=== PATIENT | male | born 2000 | race Caucasian/White ===

== ENCOUNTER 2021-03-27 15:10 | Emergency (ER) | payer OTHER, BC, SELFPAY ==
[2021-03-27 15:11] VITALS: BP 160/95; PULSE 74; RESP 18; TEMP 36.1; O2SAT 98; BMI 37.3
--- NOTE | 2021-03-27 15:21 | EX.ED.UPPERE ---
HPI History of Present Illness Chief Complaint: Laceration Narrative Narrative: 20-year-old male presenting with a laceration to the right index finger at the proximal aspect of the nail extending laterally about a quarter of a centimeter. 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 He does not know how he injured himself. He states he looked down and saw blood. He was able to get the bleeding under control with a dressing. He states he has no medical problems. He believes his immunizations are up-to-date. He is right-hand dominant. PFSH PFSH Allergy/AdvReac Type Severity Reaction Status Date / Time cefuroxime [From Ceftin] Allergy PT UNSURE Verified 03/27/21 15:11 OF REACTION Social History Smoking Status: Never smoker ROS ROS ED Constitutional Constitutional ED: Denies chills, fever(s) or sweats Eyes Eyes: Denies blurry vision or change in vision ENT ENT ED: Denies ear pain or sore throat Cardiovascular Cardiovascular: Denies chest pain, palpitations or racing heartbeat Respiratory/Chest Respiratory/Chest: Denies cough, dyspnea or sputum Gastrointestinal Gastrointestinal: Denies abdominal pain, constipation, diarrhea, nausea or vomiting Genitourinary Genitourinary ED: Denies dysuria, hematuria or urinary frequency Musculoskeletal Musculoskeletal: Denies arthralgias, myalgias or neck pain Integumentary Reports other Details: Laceration to right index fingernail ; Denies abscess or rash Neurologic Neurologic: Denies headache(s), paresthesias or weakness Psychiatric Psychiatric: Denies anxiety, depression, suicidal ideation or suicidal thoughts Endocrine Endocrinology: Denies polydipsia or polyuria EXAM Physical Exam Const Vital Signs: 03/27/21 15:11 Temperature 97 F L Temperature Source Temporal Pulse Rate 74 Respiratory Rate 18 Blood Pressure 160/95 H Blood Pressure Mean 116 Pulse Ox 98 Oxygen Delivery Method Room Air Positive well nourished General Appearance ED: NAD; Negative for pallor HEENT Reports normocephalic, head/scalp atraumatic and moist mucous membranes Eyes PERRL and EOMs intact bilaterally Neck no lymphadenopathy Resp normal respiratory effort Effort and Inspection: able to speak in complete sentences Cardio regular rate and regular rhythm GI normal to inspection, nondistended, normoactive bowel sounds Narrative: Deferred Back/Spine no CVA tenderness General Back: Negative for CVA tenderness Cervical Spine: Negative for cervical spine tenderness Extremity General Extremety ED: Yes tenderness Neuro oriented x3 and CN's II-XII intact bilaterally Sensorium / Orientation: alert Psych mental status grossly normal Skin no rashes or lesions noted and no wounds Skin Narrative: Superficial laceration to the right index finger proximal nail bed over the proximal one third of the nail and extending laterally about a quarter of a centimeter. There is no active bleeding. There is no subungual hematoma. Patient has no significant pain. Sensation is intact. Patient has full range of motion of the right index finger. General Skin Exam: Negative for jaundice or pallor MDM MDM MDM Narrative Medical decision making narrative: Patient's laceration is superficial and does cut through the nail and a proximal a very small superficial skin laceration laterally adjacent with this. The wound margins are well approximated. There is no active bleeding. Patient's hand is neurovascularly intact. I do not believe he has a nailbed injury. I will clean the patient's wound and apply glue over the superficial laceration. Patient does not require tetanus immunization currently. He will use Tylenol and ibuprofen in alternating doses for pain. Impression: 1. Superficial right index finger laceration 1 cm Procedures Lacerations Right Index Finger Laceration: Length: 0.39 in Depth: Skin Shape: Linear Laceration repair: Dermabond Irrigated (ml): 250 Discharge Plan Triage Chief Complaint: Laceration ED Provider: Arian Morales Dx/Rx/DC Orders Instructions: ED Laceration, Extremity: Skin Glue Primary Care Provider: Darshan Oviedo Referrals: Darshan Oviedo DO [Primary Care Provider] - Clinic,NOW [NON-STAFF] - 3-5 Days Disposition Disposition: Home, Self Care
--- NOTE | 2021-03-27 15:43 | ED.RN ---
[place] TRIAGE NURSE, ELAINE CALLED IN FOR DRUG SCREEN
== END 2021-03-27 17:18 | disposition home or self-care (01) ==
PROVIDERS: Emergency Provider Student in an Organized Health Care Education/Training Program; PCP Pediatrics
DX: S61.210A Laceration without foreign body of right index finger without damage to nail, initial encounter (principal); X58.XXXA Exposure to other specified factors, initial encounter; Y93.89 Activity, other specified; Y92.89 Other specified places as the place of occurrence of the external cause; Y99.0 Civilian activity done for income or pay
CPT/HCPCS: 12001; 99282

== ENCOUNTER → 2022-02-25 | Outpatient (CLI) | payer BC, SELFPAY ==
[2022-02-25 12:11] LABS: Absolute Lymphocyte Count 1.71 X10^3/uL (0.83-4.51); Absolute Neutrophil Count 2.6 X10^3/uL (2.0-7.7); Basophil# 0.02 X10^3/uL; Basophil% 0.4 % (0-1); Eosinophil# 0.16 X10^3/uL; Eosinophils% 3.3 % (0-5); Hematocrit 46.5 % (40-54); Hemoglobin 16.1 g/dL (13.0-16.5); Lymphocyte # 1.71 X10^3/ul (0.83-4.51); Lymphocyte % 34.8 % (19-41); Mean Corp Hgb Conc 34.6 g/dL (32-36); Mean Corpuscular Hgb 30.8 pg (27.0-32.0); Mean Corpuscular Volume 88.9 fL (80-94); Mean Platelet Vol. 9.9 fl (6.2-12.0); Monocyte# 0.44 X10^3/uL; Monocyte% 8.9 % (0-10); NRBC Flagged by Analyzer 0 % (0-5); Neutrophil # 2.58 X10^3/uL (2.7-7.7); Neutrophil % 52.4 % (47-70); Platelet Count 338 K/mm3 (150-450); RBC Distribution Width SD 38.7 fl (35.1-43.9); Red Blood Count 5.23 M/mm3 (4.6-6.2); White Blood Count 4.9 K/mm3 (4.4-11.0)
[2022-02-25 12:38] LABS: ALB/GLOB Ratio 1.3 RATIO (0.9-2.4); AST(SGOT) 25 U/L (15-37); Alanine Aminotransfer ALT/SGPT 75 U/L (16-61); Albumin, Serum 4.3 g/dL (3.2-5.0); Alkaline Phosphatase 85 U/L (45-117); Anion Gap 6 (5-15); BUN 9 mg/dL (7-18); BUN/Creat Ratio 9.5 RATIO (10-20); Calcium,Total 9.6 mg/dL (8.5-10.1); Chloride 103 mmol/L (98-107); Cholesterol 150 mg/dL (200); Creatinine, Serum 0.95 mg/dL (0.70-1.30); EST Glomerular Filtration Rate 107 mL/min (>60); Est Glom Filt Rate - Afr Amer 130 mL/min (>60); Globulin 3.3 g/dL (2.2-4.2); Glucose 89 mg/dL (74-106); High Density Lipoprotein 35 mg/dL; Potassium 4.2 mmol/L (3.5-5.1); Protein, Total 7.6 g/dL (6.4-8.2); Sodium Level 140 mmol/L (136-145); Thyroid Stim Hormone (TSH) 3.17 uIU/mL (0.358-3.74); Triglycerides 131 mg/dL; Very Low Density Lipoprotein 26 mg/dL (5-40)
== END | disposition home or self-care (01) ==
LOC: BIMLAB 08:39
PROVIDERS: PCP Nurse Practitioner Family; Referring Provider Nurse Practitioner Family; Visit Provider Nurse Practitioner Family
DX: Z00.00 Encounter for general adult medical examination without abnormal findings (principal)
CPT/HCPCS: 36415; 80053; 80061; 84443; 85025

== ENCOUNTER → 2022-05-20 | Outpatient (CLI) | payer BC, SELFPAY ==
[2022-05-20 12:57] LABS: ALB/GLOB Ratio 1.4 RATIO (0.9-2.4); AST(SGOT) 19 U/L (15-37); Alanine Aminotransfer ALT/SGPT 48 U/L (16-61); Albumin, Serum 4.1 g/dL (3.2-5.0); Alkaline Phosphatase 92 U/L (45-117); Anion Gap 6 (5-15); BUN 10 mg/dL (7-18); BUN/Creat Ratio 10.5 RATIO (10-20); Calcium,Total 9.6 mg/dL (8.5-10.1); Chloride 104 mmol/L (98-107); Creatinine, Serum 0.95 mg/dL (0.70-1.30); EST Glomerular Filtration Rate 107 mL/min (>60); Est Glom Filt Rate - Afr Amer 129 mL/min (>60); Glucose 111 mg/dL (74-106); Potassium 4.1 mmol/L (3.5-5.1); Protein, Total 7.1 g/dL (6.4-8.2); Sodium Level 141 mmol/L (136-145)
== END | disposition home or self-care (01) ==
LOC: BIMLAB 11:42
PROVIDERS: PCP Nurse Practitioner Family; Referring Provider Nurse Practitioner Family; Visit Provider Nurse Practitioner Family
DX: R79.89 Other specified abnormal findings of blood chemistry (principal)
CPT/HCPCS: 36415; 80053

== ENCOUNTER 2022-05-26 18:05 | Emergency (ER) | payer BC, SELFPAY ==
[2022-05-26 18:05] VITALS: BP 131/72; PULSE 62; RESP 14; O2SAT 98
[2022-05-26 18:06] VITALS: BP 136/80; PULSE 90; RESP 14; TEMP 36.8; O2SAT 98; BMI 32.6
[2022-05-26 19:24] VITALS: O2SAT 99
--- NOTE | 2022-05-26 19:43 | EDS_ITS ---
HPI History of Present Illness Chief Complaint: Shortness of Breath Narrative Narrative: 21-year-old male presenting with dizziness. He describes it as vertiginous. 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 He states he has not been nauseous or vomiting. He states that he does feel confused at times. He states he was seen by the urgent care with similar complaints and was treated as otitis media. He states he had to go on 2 rounds of antibiotics. He states there was still yellow drainage coming from his bilateral ears. He denies fever, chills. He denies cough or shortness of breath. He denies headache. [facility] Medical History Contusion of left index finger with damage to nail Encounter for preventative adult health care examination Laceration of left index finger Mallet deformity of left index finger Home Medications ondansetron HCl 8 mg tablet 8 mg PO Q12H PRN nausea and vomiting #14 tabs 05/07/22 [Rx Last Taken Unknown] meclizine 25 mg chewable tablet 25 mg PO DAILY PRN dizziness #30 tabs 05/26/22 [Rx Last Taken Unknown] promethazine 25 mg tablet 25 mg PO TID PRN nausea and vomiting #20 tabs 05/26/22 [Rx Last Taken Unknown] Allergy/AdvReac Type Severity Reaction Status Date / Time cefuroxime [From Ceftin] Allergy PT UNSURE Verified 05/26/22 18:05 OF REACTION Family History Father Alcoholism Grandfather Alcoholism Parkinsons Grandfather No problems noted. Grandmother Anxiety Breast cancer Melanoma Other Myocardial infarction Surgical History History of placement of ear tubes Social History Smoking Status: Never smoker Electronic Cigarette Use: with nicotine alcohol intake: never substance use type: does not use what type of physical activity do you participate in: weight training frequency: daily EXAM Physical Exam Const Vital Signs: 05/26/22 18:06 05/26/22 19:24 Temperature 98.2 F Temperature Source Temporal Pulse Rate 90 Respiratory Rate 14 Respiratory Effort Normal Non-Labored Respiratory Pattern Normal Blood Pressure 136/8 H Blood Pressure Mean 50 Pulse Ox 98 Oxygen Delivery Method Room Air Room Air Positive well nourished General Appearance ED: NAD; Negative for pallor HEENT Reports moist mucous membranes HEENT Narrative: Positive Nathalie-Hallpike Negative for trauma Eyes PERRL and EOMs intact bilaterally Chest Wall inspection of chest normal Resp normal respiratory effort Auscultation: Negative for rales, rhonchi or wheezes Cardio regular rate and regular rhythm GI normal to inspection, nondistended, normoactive bowel sounds Extremity normal to inspection Neuro oriented x3 and CN's II-XII intact bilaterally Sensorium / Orientation: alert Psych mental status grossly normal Skin no rashes or lesions noted and no wounds General Skin Exam: Negative for jaundice or pallor MDM MDM MDM Narrative Medical decision making narrative: Patient presenting with dizziness. He is concerned he has otitis media again. He has been on 2 rounds of antibiotics. His HEENT exam is normal with exception of a positive Nathalie-Hallpike. Patient medicated with meclizine. Triage note states that he has been short of breath but he denies this. He does not have a cough or fever or chills. Last had influenza a few weeks ago. I did observe the patient walking in the hallways with a stable gait. He was not falling or holding onto the wall. He reports that he does not feel improved at all however he is moving around and not having any difficulty objectively. Given this I will discharge him home on meclizine. He was given Phenergan as needed for na usea as well. States his. He was given follow-up with ENT. Impression: 1. Vertigo Discharge Plan Triage Chief Complaint: Shortness of Breath ED Provider: Arian Morales Dx/Rx/DC Orders Instructions: ED BPV Vertigo Prescriptions: New meclizine 25 mg tablet,chewable 25 mg PO DAILY PRN (Reason: dizziness) Qty: 30 0RF promethazine 25 mg tablet 25 mg PO TID PRN (Reason: nausea and vomiting) Qty: 20 0RF No Action ondansetron HCl 8 mg tablet 8 mg PO Q12H PRN (Reason: nausea and vomiting) Qty: 14 0RF Primary Care Provider: Getachew Cabrera NP Referrals: Mars Bowen MD [Med Staff - Courtesy Staff] - 3-5 Days Getachew Cabrera WEBSPHERE PORTAL ARCHITECT, WEBSPHERE PORTAL ARCHITECT-C [Primary Care Provider] - Disposition Disposition: Home, Self Care
[2022-05-26] MEDS: Meclizine HCl 25 MG Tablet PO (20:07)
== END 2022-05-26 21:53 | disposition home or self-care (01) ==
PROVIDERS: Emergency Provider Student in an Organized Health Care Education/Training Program; PCP Nurse Practitioner Family; Visit Provider Student in an Organized Health Care Education/Training Program
DX: R42 Dizziness and giddiness (principal); F17.210 Nicotine dependence, cigarettes, uncomplicated
CPT/HCPCS: 99283

== ENCOUNTER 2022-06-02 09:16 | Emergency (ER) | payer BC, SELFPAY ==
[2022-06-02 09:17] VITALS: BP 105/78; PULSE 97; RESP 18; TEMP 36.1; O2SAT 99; BMI 34.0
--- NOTE | 2022-06-02 09:40 | EDS_ITS ---
HPI History of Present Illness Chief Complaint: Nausea/Vomiting Narrative Narrative: 21-year-old male presenting with nausea/vomiting. He states it started when he woke up today. He woke up and started vomiting. Patient does also state he has been able to hold down water without vomiting this. He just cannot keep food down. He states he ate pork and sauerkraut last night. This is not out of the ordinary for him. He eats this twice a month. Nobody else that ate this became ill. He states he was unable to go to work. He states he does not have any fever, chills, body aches. He has never cough or shortness of breath. No rhinorrhea or congestion. Patient does not have abdominal pain, diarrhea, constipation. He states he is otherwise healthy. Patient does have a prescription for Phenergan and meclizine at home. This is due to a history of vertigo. He states that Zofran in the past has given him a headache. Patient denies a simona allergy to this. [facility] Medical History Contusion of left index finger with damage to nail Encounter for preventative adult health care examination Laceration of left index finger Mallet deformity of left index finger Home Medications ondansetron HCl 8 mg tablet 8 mg PO Q12H PRN nausea and vomiting #14 tabs 05/07/22 [Rx Last Taken Unknown] meclizine 25 mg chewable tablet 25 mg PO DAILY PRN dizziness #30 tabs 05/26/22 [Rx Last Taken Unknown] promethazine 25 mg tablet 25 mg PO TID PRN nausea and vomiting #20 tabs 05/26/22 [Rx Last Taken Unknown] promethazine 25 mg tablet 25 mg PO TID PRN nausea and vomiting #20 tabs 06/02/22 [Rx Last Taken Unknown] Allergy/AdvReac Type Severity Reaction Status Date / Time cefuroxime [From Ceftin] Allergy PT UNSURE Verified 06/02/22 09:19 OF REACTION Family History Father Alcoholism Grandfather Alcoholism Parkinsons Grandfather No problems noted. Grandmother Anxiety Breast cancer Melanoma Other Myocardial infarction Surgical History History of placement of ear tubes Social History Smoking Status: Never smoker Electronic Cigarette Use: with nicotine alcohol intake: never substance use type: does not use what type of physical activity do you participate in: weight training frequency: daily ROS ROS ED Constitutional Constitutional ED: Denies chills, fever(s) or sweats Eyes Eyes: Denies blurry vision or change in vision ENT ENT ED: Denies ear pain or sore throat Cardiovascular Cardiovascular: Denies chest pain, palpitations or racing heartbeat Respiratory/Chest Respiratory/Chest: Denies cough, dyspnea or sputum Gastrointestinal Gastrointestinal: Reports nausea and vomiting; Denies abdominal pain, constipation or diarrhea Genitourinary Genitourinary ED: Denies dysuria, hematuria or urinary frequency Musculoskeletal Musculoskeletal: Denies arthralgias, myalgias or neck pain Integumentary Denies abscess, Abrasions or rash Neurologic Neurologic: Denies headache(s), paresthesias or weakness Psychiatric Psychiatric: Denies anxiety, depression, suicidal ideation or suicidal thoughts Endocrine Endocrinology: Denies polydipsia or polyuria EXAM Physical Exam Const Vital Signs: 06/02/22 09:17 Temperature 96.9 F L Temperature Source Temporal Pulse Rate 97 Respiratory Rate 18 Blood Pressure 105/78 Blood Pressure Mean 87 Pulse Ox 99 Oxygen Delivery Method Room Air Positive well nourished General Appearance ED: NAD; Negative for pallor HEENT Reports moist mucous membranes Eyes PERRL and EOMs intact bilaterally Neck no lymphadenopathy Chest Wall inspection of chest normal and palpation of chest normal Resp normal respiratory effort and clear to auscultation bilaterally Cardio regular rate and regular rhythm GI normal to inspection, nondistended, normoactive bowel sounds Neuro oriented x3 and CN's II-XII intact bilaterally Sensorium / Orientation: alert Motor Exam: strength 5/5 throughout and general weakness Psych mental status grossly normal Skin no rashes or lesions noted General Skin Exam: Negative for jaundice or pallor MDM MDM MDM Narrative Medical decision making narrative: Patient does not want Zofran because gives him a headache. He was given 1 dose of Phenergan. He request a work note for work. Patient feeling improved after Phenergan. He was given another prescription for this which specifically states for nausea and vomiting. I do not believe he needs a blood work or imaging. Patient discharged home in stable condition. Impression: 1. Nausea 2. Vomiting Lab Data Attestation: I reviewed the patient's lab results. Discharge Plan Triage Chief Complaint: Nausea/Vomiting ED Provider: Arian Morales Dx/Rx/DC Orders Instructions: ED Vomiting (Adult) Prescriptions: New promethazine 25 mg tablet 25 mg PO TID PRN (Reason: nausea and vomiting) Qty: 20 0RF No Action ondansetron HCl 8 mg tablet 8 mg PO Q12H PRN (Reason: nausea and vomiting) Qty: 14 0RF meclizine 25 mg tablet,chewable 25 mg PO DAILY PRN (Reason: dizziness) Qty: 30 0RF promethazine 25 mg tablet 25 mg PO TID PRN (Reason: nausea and vomiting) Qty: 20 0RF Stand Alone Forms: ED Work / School Excuse Primary Care Provider: Getachew Cabrera NP Referrals: Getachew Cabrera NP, SMALL MACHINE BINDERY OPERATOR-C [Primary Care Provider] - Disposition Disposition: Home, Self Care Discharge Date/Time: 06/02/22 10:00
[2022-06-02] MEDS: proMETHazine 25 MG Tablet PO (09:43)
== END 2022-06-02 10:00 | disposition home or self-care (01) ==
PROVIDERS: Emergency Provider Student in an Organized Health Care Education/Training Program; PCP Nurse Practitioner Family; Visit Provider Student in an Organized Health Care Education/Training Program
DX: R11.2 Nausea with vomiting, unspecified (principal); F17.290 Nicotine dependence, other tobacco product, uncomplicated
CPT/HCPCS: 99283

== ENCOUNTER 2022-08-28 19:49 | Emergency (ER) | payer BC, SELFPAY ==
[2022-08-28 19:52] VITALS: BP 129/83; PULSE 71; RESP 18; TEMP 36.6; O2SAT 98; BMI 34.7
--- NOTE | 2022-08-28 19:54 | RAD_ITS ---
INDICATION: BILAT -- PAIN EXAMINATION/TECHNIQUE: X-RAY - LEFT XR Knee 3 Views COMPARISON: None. FINDINGS: SOFT TISSUES: No soft tissue swelling or gas. No radiopaque foreign body. BONES/JOINTS: No acute fracture or subluxation.. Normal alignment. Preservation of the joint space.. No sclerotic or destructive changes observed. RAD/Knee 3 Views IMPRESSION: Negative. Electronically Signed: Dioni Goldstein DO at 20:17 EDT ,
--- NOTE | 2022-08-28 20:00 | RAD_ITS ---
INDICATION: PAIN EXAMINATION/TECHNIQUE: X-RAY - RIGHT XR Knee 3 Views COMPARISON: None. FINDINGS: SOFT TISSUES: No soft tissue swelling or gas. No radiopaque foreign body. BONES/JOINTS: No acute fracture or subluxation.. Normal alignment. Preservation of the joint space.. No sclerotic or destructive changes observed. RAD/Knee 3 Views IMPRESSION: No acute bony injury. Electronically Signed: Dioni Goldstein DO at 20:17 EDT ,
--- NOTE | 2022-08-28 20:45 | EDS_ITS ---
HPI History of Present Illness Chief Complaint: Lower Extremity Injury Detail of Chief Complaint: Clicking sensation lateral aspect of the right and left knee for some time Informant: patient Onset/Context/Timing Onset: Month(s) Context: Sudden Onset Timing: Intermittent Quality of Pain: Aching Location: Lateral aspect of right and left knee Current Severity: Mild Maximum Severity: Moderate Worsened by: Certain movements Relieved by: Rest Associated Symptoms Associated Symptoms: Negative for Parasthesia, Weakness or Loss of Funtion Narrative Narrative: Patient is a 22-year-old who presents with bilateral knee pain with clicking sensation for some time. He denies history of gout or pseudogout. He denies history of trauma. He denies paresthesia, anesthesia or motor weakness. Tetanus Immunization: 5-10 years Prior similar symptoms: No Recent Illness/Hospitalization: No PFSH [facility] Medical History Contusion of left index finger with damage to nail Encounter for preventative adult health care examination Laceration of left index finger Mallet deformity of left index finger Home Medications NK 08/28/22 [History Last Taken Unknown] Allergy/AdvReac Type Severity Reaction Status Date / Time cefuroxime [From Ceftin] Allergy PT UNSURE Verified 08/28/22 19:53 OF REACTION Family History Father Alcoholism Grandfather Alcoholism Parkinsons Grandfather No problems noted. Grandmother Anxiety Breast cancer Melanoma Other Myocardial infarction Surgical History History of placement of ear tubes Social History Smoking Status: Never smoker Electronic Cigarette Use: with nicotine alcohol intake: never substance use type: does not use what type of physical activity do you participate in: weight training frequency: daily ROS ROS ED Constitutional Constitutional ED: Denies chills, fever(s), subjective, sweats or weight loss Musculoskeletal Musculoskeletal: Reports other Details: Per HPI narrative ; Denies arthralgias, back pain, myalgias or neck pain Hematologic/Lymphatic Hematologic/Lymphatic: Denies easy bleeding or easy bruising EXAM Physical Exam Const Vital Signs: 08/28/22 19:52 Temperature 97.8 F Temperature Source Temporal Pulse Rate 71 Respiratory Rate 18 Blood Pressure 129/83 H Blood Pressure Mean 98 Pulse Ox 98 Oxygen Delivery Method Room Air Positive well nourished and well developed General Appearance ED: well developed and NAD HEENT Reports moist mucous membranes normocephalic and atraumatic Eyes Eyes Narrative: Pupils equal round reactive. Extraocular muscles are intact. Neck full ROM Resp normal respiratory effort Cardio regular rate and regular rhythm Extremity normal to inspection and full ROM Extremity Narrative: There is a appreciable clicking sensation consistent with a iliotibial band on the right and left. The patella is not ballotable. There is no effusion. There is no laxity with varus valgus stress testing. Penny's test was negative. Modified Navi's test was negative. DP and PT pulse are palpable. These findings are for both the right and left lower extremity. General Extremety ED: Negative for weight-bearing difficulty General Extremity: Negative for weight-bearing difficulty Neuro oriented x3, CN's II-XII intact bilaterally and moves all extremities Psych mental status grossly normal Skin no wounds Lesions: no lesions Rashes: no rashes MDM MDM MDM Narrative Medical decision making narrative: X-ray of the right and left knee were entered per nurse protocol. These were independently reviewed interpreted by me negative. Total of 4 views were seen Radiography Chest X-Ray - ED: Read by ED Physician (Documented in the MDM portion of the chart) Diagnostic Testing: Clinical Impression(s) from Imaging Studies Knee X-Ray 08/28/22 19:54 IMPRESSION: Negative. Electronically Signed: Dioni Goldstein DO at 20:17 EDT , Knee X-Ray 08/28/22 20:00 IMPRESSION: No acute bony injury. Electronically Signed: Dioni Goldstein DO at 20:17 EDT , Discharge Plan Triage Chief Complaint: Lower Extremity Injury ED Provider: Aldair Powell Dx/Rx/DC Orders Clinical Impression: Iliotibial band friction syndrome of both knees Instructions: Iliotibial Band Friction Syndrome, IT Band Syndrome Tx Prescriptions: No Action NK Primary Care Provider: Getachew Cabrera NP Referrals: Getachew Cabrera NP, CRYSTAL ATTACHER-C [Primary Care Provider] - 1 Week if not improving Disposition Disposition: Home, Self Care
== END 2022-08-28 21:08 | disposition home or self-care (01) ==
PROVIDERS: Emergency Provider Emergency Medicine; PCP Nurse Practitioner Family; Visit Provider Emergency Medicine
DX: M76.32 Iliotibial band syndrome, left leg (principal); M76.31 Iliotibial band syndrome, right leg; F17.290 Nicotine dependence, other tobacco product, uncomplicated
CPT/HCPCS: 73562; 99282

== ENCOUNTER 2022-09-27 20:29 | Emergency (ER) | payer BC, SELFPAY ==
[2022-09-27 20:31] VITALS: BP 133/68; PULSE 76; RESP 15; TEMP 36.2; O2SAT 98; BMI 30.7
[2022-09-27] MEDS: Ketorolac 15 MG/ML Vial IV (20:58)
[2022-09-27] MEDS: 0.9% Normal Saline 1,000 ML 1000 ML IV (20:58)
[2022-09-27] MEDS: Ondansetron 4 MG/2 ML Vial IV (20:58)
[2022-09-27] MEDS: Dicyclomine 10 MG Capsule 20 MG PO (20:58)
[2022-09-27 21:03] LABS: Absolute Lymphocyte Count 1.84 X10^3/uL (0.83-4.51); Absolute Neutrophil Count 2.9 X10^3/uL (2.0-7.7); Basophil# 0.04 X10^3/uL; Basophil% 0.7 % (0-1); Eosinophil# 0.23 X10^3/uL; Eosinophils% 4.3 % (0-5); Hematocrit 45.5 % (40-54); Hemoglobin 15.7 g/dL (13.0-16.5); Lymphocyte # 1.84 X10^3/ul (0.83-4.51); Mean Corp Hgb Conc 34.5 g/dL (32-36); Mean Corpuscular Hgb 29.5 pg (27.0-32.0); Mean Corpuscular Volume 85.4 fL (80-94); Mean Platelet Vol. 9.6 fl (6.2-12.0); Monocyte# 0.38 X10^3/uL; NRBC Flagged by Analyzer 0 % (0-5); Neutrophil # 2.91 X10^3/uL (2.7-7.7); Neutrophil % 53.8 % (47-70); Platelet Count 322 K/mm3 (150-450); RBC Distribution Width CV 12.4 % (11.6-14.6); RBC Distribution Width SD 38.2 fl (35.1-43.9); Red Blood Count 5.33 M/mm3 (4.6-6.2); White Blood Count 5.4 K/mm3 (4.4-11.0)
[2022-09-27 21:20] LABS: ALB/GLOB Ratio 1.2 RATIO (0.9-2.4); AST(SGOT) 15 U/L (15-37); Alanine Aminotransfer ALT/SGPT 25 U/L (16-61); Alkaline Phosphatase 88 U/L (45-117); Anion Gap 1 (5-15); BUN 11 mg/dL (7-18); Calcium,Total 9.1 mg/dL (8.5-10.1); Chloride 105 mmol/L (98-107); EST Glomerular Filtration Rate 101 mL/min (>60); Est Glom Filt Rate - Afr Amer 122 mL/min (>60); Estimated Creatinine Clearance 124.45 ml/min; Globulin 3.2 g/dL (2.2-4.2); Glucose 100 mg/dL (74-106); Lipase 25 U/L (13-75); Protein, Total 7.2 g/dL (6.4-8.2); Sodium Level 139 mmol/L (136-145)
[2022-09-27] MEDS: Metoclopramide 10 MG/2 ML Vial 5 MG IV (21:44)
--- NOTE | 2022-09-27 21:47 | EDS_ITS ---
HPI <CARRIE Steiner - Last Filed: 09/27/22 22:01> History of Present Illness Chief Complaint: Nausea/Vomiting Narrative Narrative: Patient is a 22-year-old male with no significant medical history who presents to the emergency department with 3 to 4 hours of nausea, vomiting, diarrhea. Patient states that hit his lower stomach all at once. He then had multiple episodes of vomitus with bile. He also had 2-3 episodes of diarrhea. He was concerned with the cramping, and generally not feeling well that he is here for evaluation. Denies any fever or chills. [place] any blood in his stool or vomit. PFSH <CARRIE Steiner - Last Filed: 09/27/22 22:01> PFSH Medical History Contusion of left index finger with damage to nail Encounter for preventative adult health care examination Laceration of left index finger Mallet deformity of left index finger Home Medications dicyclomine 20 mg tablet 20 mg PO TID #20 tabs 09/27/22 [Rx Last Taken Unknown] ondansetron 4 mg disintegrating tablet 4 mg PO Q8H PRN PRN Nausea #10 tabs 09/27/22 [Rx Last Taken Unknown] Allergy/AdvReac Type Severity Reaction Status Date / Time cefuroxime [From Ceftin] Allergy PT UNSURE Verified 08/28/22 19:53 OF REACTION Family History Father Alcoholism Grandfather Alcoholism Parkinsons Grandfather No problems noted. Grandmother Anxiety Breast cancer Melanoma Other Myocardial infarction Surgical History History of placement of ear tubes Social History Smoking Status: Never smoker Electronic Cigarette Use: with nicotine alcohol intake: never substance use type: does not use what type of physical activity do you participate in: weight training frequency: daily ROS <CARRIE Steiner - Last Filed: 09/27/22 22:01> ROS ED ROS Narrative Constitutional: Negative for fever, chills, weight loss, weakness Eyes: Negative for vision loss, vision change, double vision ENT: Negative for any sore throat, ear pain, congestion Cardiovascular: Negative for any chest pain, tightness, palpitations Respiratory: Negative for any cough, sputum production, hemoptysis, dyspnea, dyspnea on exertion, orthopnea Gastrointestinal: Negative for any abdominal pain, constipation, blood in stool, blood in vomit. Positive for nausea, vomiting, diarrhea : Negative for any urinary frequency, dysuria, retention, blood in urine Muscle skeletal: Negative for any muscle joint pain, stiffness, myalgias, arthralgias, neck pain, back pain Neurological: Negative for any headache, syncope, numbness or tingling, dizziness Skin: Negative for any rashes, lumps, itching, abrasions, lacerations Psychiatric: Negative for any depression, anxiety, stress, suicidal ideation, homicidal ideation Hematologic: Negative for any easy bruising, excessive bruising, easy bleeding Allergies: Negative for any eczema, hives, rash EXAM <CARRIE Steiner - Last Filed: 09/27/22 22:01> Physical Exam Narrative Exam Narrative: Vital signs reviewed. HEET: Head normocephalic atraumatic, TMs clear bilaterally. Posterior pharynx is clear, moist mucous membranes. Nares clear bilaterally. Neck: Supple with no lymphadenopathy or tenderness. No signs of meningismus, negative jolt sign. Cardiac: Regular rate and rhythm no murmurs gallops or rubs, equal peripheral pulses bilaterally. Respiratory: Lungs clear to auscultation bilaterally. No chest tenderness. Abdomen: Soft, nontender, nondistended. No abdominal bruit or pulsatile masses. No hepatosplenomegaly Extremities: No peripheral edema, no signs of gross trauma or deformity. Active full range of motion of all extremities. Neuro: Cranial nerves II through XII intact, no focal neurological deficits. Skin: Clean dry and intact with no rash, purpura, petechiae, vesicles or pustules. Backs/flank: No CVA tenderness, no midline spinal tenderness, no deformity. Psych: Normal mood and affect. No SI, HI or acute psychosis. Const Vital Signs: 09/27/22 20:31 Temperature 97.2 F L Temperature Source Temporal Pulse Rate 76 Respiratory Rate 15 Blood Pressure 133/68 H Blood Pressure Mean 89 Pulse Ox 98 Oxygen Delivery Method Room Air Positive well nourished and well developed General Appearance ED: well developed <Dr. Bryson Hannon MD - Last Filed: 09/27/22 23:36> Physical Exam Const Vital Signs: 09/27/22 20:31 Temperature 97.2 F L Temperature Source Temporal Pulse Rate 76 Respiratory Rate 15 Blood Pressure 133/68 H Blood Pressure Mean 89 Pulse Ox 98 Oxygen Delivery Method Room Air [facility] <Khoa NoemyCARRIE lan - Last Filed: 09/27/22 22:01> [facility] Lab Data Attestation: I reviewed the patient's lab results. Labs: Laboratory Results - last 24 hr 09/27/22 09/27/22 20:55 20:55 WBC 5.4 RBC 5.33 Hgb 15.7 Hct 45.5 MCV 85.4 MCH 29.5 MCHC 34.5 RDW Std Deviation 38.2 RDW Coeff of Jarret 12.4 Plt Count 322 MPV 9.6 Immature Gran % (Auto) 0.200 Neut % (Auto) 53.8 Lymph % (Auto) 34.0 [place] % (Auto) 7.0 Eos % (Auto) 4.3 Baso % (Auto) 0.7 Absolute Neuts (auto) 2.9 Absolute Lymphs (auto) 1.84 Nucleated RBC % 0 Sodium 139 Potassium 4.0 Chloride 105 Carbon Dioxide 33.0 H Anion Gap 1 L BUN 11 Creatinine 1.00 Estim Creat Clear Calc 124.45 Est GFR (MDRD) Af Amer 122 Est GFR (MDRD) Non-Af 101 BUN/Creatinine Ratio 11.0 Glucose 100 Calcium 9.1 Total Bilirubin 0.40 AST 15 ALT 25 Alkaline Phosphatase 88 Total Protein 7.2 Albumin 4.0 Globulin 3.2 Albumin/Globulin Ratio 1.2 Lipase 25 Treatment and Re-Evaluation :: Patient appears generally well, patient appears nontoxic, vital signs are stable. Patient presents the emergency department for 3 to 4 hours of generalized nausea, vomiting, diarrhea. Patient's physical examination yielded no red flag signs. Differential diagnosis include appendicitis, bowel obstruction, diverticulitis. Consider CT scan of the abdomen pelvis however the patient had minimal to no pain on abdominal exam. Patient vital signs are stable. Laboratory values were grossly unremarkable. Patient received IV fluids, IV Zofran. Patient was redosed with IV Reglan, Toradol. Patient felt better on reassessment. Patient will be given Zofran for home as well as B entyl. He will follow-up closely outpatient. He was given return precaution, all questions answered. Patient stable for discharge. <Dr. Bryson Hannon MD - Last Filed: 09/27/22 23:36> [facility] Lab Data Labs: Laboratory Results - last 24 hr 09/27/22 09/27/22 20:55 20:55 WBC 5.4 RBC 5.33 Hgb 15.7 Hct 45.5 MCV 85.4 MCH 29.5 MCHC 34.5 RDW Std Deviation 38.2 RDW Coeff of Jarret 12.4 Plt Count 322 MPV 9.6 Immature Gran % (Auto) 0.200 Neut % (Auto) 53.8 Lymph % (Auto) 34.0 [place] % (Auto) 7.0 Eos % (Auto) 4.3 Baso % (Auto) 0.7 Absolute Neuts (auto) 2.9 Absolute Lymphs (auto) 1.84 Nucleated RBC % 0 Sodium 139 Potassium 4.0 Chloride 105 Carbon Dioxide 33.0 H Anion Gap 1 L BUN 11 Creatinine 1.00 Estim Creat Clear Calc 124.45 Est GFR (MDRD) Af Amer 122 Est GFR (MDRD) Non-Af 101 BUN/Creatinine Ratio 11.0 Glucose 100 Calcium 9.1 Total Bilirubin 0.40 AST 15 ALT 25 Alkaline Phosphatase 88 Total Protein 7.2 Albumin 4.0 Globulin 3.2 Albumin/Globulin Ratio 1.2 Lipase 25 Treatment and Re-Evaluation Comments:: Seen and evaluated independently and in conjunction with nurse practitioner. Agree with notes above unless documented otherwise. Several hours of nausea, vomiting, diarrhea, no blood, no fevers or chills. Abdomen is benign on exam. Suspect viral etiology, supportive care advised, he is doing much better after metoclopramide which we will prescribe him to use as needed. Discharge Plan Triage Chief Complaint: Nausea/Vomiting ED Midlevel Provider: Khoa Mendoza ED Provider: Bryson Hannon Dx/Rx/DC Orders Clinical Impression: Gastroenteritis Instructions: ED Gastritis (Adult) Prescriptions: New ondansetron 4 mg tablet,disintegrating 4 mg PO Q8H PRN PRN (Reason: Nausea) Qty: 10 0RF dicyclomine 20 mg tablet 20 mg PO TID Qty: 20 0RF Primary Care Provider: Getachew Cabrera NP Referrals: Getachew Cabrera NP, [employer] [Primary Care Provider] - Activity Restrictions/Additional Instructions: Please advance her diet as tolerated tomorrow. Started off easy. Disposition Disposition: Home, Self Care Discharge Date/Time: 09/27/22 22:12
== END 2022-09-27 22:12 | disposition home or self-care (01) ==
PROVIDERS: Nurse Practitioner; Emergency Provider Emergency Medicine; PCP Nurse Practitioner Family; Visit Provider Emergency Medicine
DX: K52.9 Noninfective gastroenteritis and colitis, unspecified (principal); F17.290 Nicotine dependence, other tobacco product, uncomplicated
CPT/HCPCS: 80053; 83690; 85025; 96361; 96374; 96375; 99282; J7030; A4216; J2405

== ENCOUNTER → 2022-10-02 | Outpatient (CLI) | payer BC, SELFPAY ==
[2022-10-02 18:03] LABS: T4 Free Direct 1.01 ng/dL (0.76-1.46); Thyroid Stim Hormone (TSH) 1.63 uIU/mL (0.358-3.74)
== END | disposition home or self-care (01) ==
PROVIDERS: PCP Nurse Practitioner Family; Referring Provider Nurse Practitioner Family; Visit Provider Nurse Practitioner Family
DX: R63.4 Abnormal weight loss (principal); R61 Generalized hyperhidrosis
CPT/HCPCS: 36415; 84439; 84443

== ENCOUNTER 2022-10-17 10:55 | Emergency (ER) | payer BC, SELFPAY ==
[2022-10-17 10:56] VITALS: BP 136/74; PULSE 73; RESP 14; TEMP 36.2; O2SAT 98; BMI 32.3
--- NOTE | 2022-10-17 11:07 | EX.ED.DYSGE1 ---
HPI <YENIFER De Leon - Last Filed: 10/17/22 15:43> History of Present Illness Chief Complaint: Nausea/Vomiting/Diarrhea Narrative Narrative: Patient presenting today with nausea, vomiting, and diarrhea that he has had since last night. He states that he has had 5-6 episodes of loose stool and 4-5 episodes of vomiting. He denies having any abdominal pain. He states that some of the people at work are sick with similar symptoms. He denies any fever, chills, hematemesis, blood in the stool, and urinary symptoms. He denies any prior abdominal surgery. He denies a PMH of any chronic health conditions. PFSH <YENIFER De Leon - Last Filed: 10/17/22 15:43> PFSH Medical History Contusion of left index finger with damage to nail Diaphoresis Encounter for preventative adult health care examination Laceration of left index finger Mallet deformity of left index finger Unexplained weight loss Home Medications metoclopramide HCl 10 mg tablet (Reglan) 10 mg PO Q6H PRN nausea and vomiting 4 days #16 tabs 10/17/22 [Rx Last Taken Unknown] ondansetron 4 mg disintegrating tablet 4 mg PO Q8H PRN PRN Nausea #10 tabs 10/17/22 [Rx Last Taken Unknown] Allergy/AdvReac Type Severity Reaction Status Date / Time cefuroxime [From Ceftin] Allergy PT UNSURE Verified 10/17/22 10:57 OF REACTION Family History Father Alcoholism Grandfather Alcoholism Parkinsons Grandfather No problems noted. Grandmother Anxiety Breast cancer Melanoma Other Myocardial infarction Surgical History History of placement of ear tubes Social History Smoking Status: Never smoker Electronic Cigarette Use: with nicotine alcohol intake: never substance use type: does not use what type of physical activity do you participate in: weight training frequency: daily ROS <YENIFER De Leon - Last Filed: 10/17/22 15:43> ROS ED Constitutional Constitutional ED: Denies chills, fever(s) or sweats Cardiovascular Cardiovascular: Denies chest pain or palpitations Respiratory/Chest Respiratory/Chest: Denies cough or dyspnea Gastrointestinal Gastrointestinal: Reports diarrhea, nausea and vomiting; Denies abdominal pain, constipation or melena Genitourinary Genitourinary ED: Denies dysuria, hematuria or urinary urgency Musculoskeletal Musculoskeletal: Denies arthralgias, back pain or myalgias Integumentary Denies rash Neurologic Neurologic: Denies weakness Psychiatric Psychiatric: Denies anxiety or depression EXAM <YENIFER De Leon - Last Filed: 10/17/22 15:43> Physical Exam Const Vital Signs: 10/17/22 10:56 10/17/22 13:47 Temperature 97.2 F L Temperature Source Temporal Pulse Rate 73 63 Respiratory Rate 14 16 Blood Pressure 136/74 H 129/83 H Blood Pressure Mean 94 Pulse Ox 98 100 Oxygen Delivery Method Room Air Positive well nourished, well developed and no apparent distress General Appearance ED: well developed HEENT Reports normocephalic and head/scalp atraumatic Mouth ED: Yes moist mucous membranes normal Eyes PERRL and EOMs intact bilaterally Neck full ROM and supple Chest Wall inspection of chest normal Resp normal respiratory effort and clear to auscultation bilaterally Cardio regular rate and regular rhythm GI soft to palpation, non-tender, non-distended and no masses Back/Spine normal ROM and normal to inspection Extremity normal to inspection and full ROM Neuro oriented x3, CN's II-XII intact bilaterally, moves all extremities, no focal motor deficits and no sensory deficits noted Sensorium / Orientation: awake and alert Psych mental status grossly normal and thought process normal Skin no rashes or lesions noted and no wounds <Dr. Serenity Vivar, - Last Filed: 10/17/22 17:40> Physical Exam Const Vital Signs: 10/17/22 10:56 10/17/22 13:47 Temperature 97.2 F L Temperature Source Temporal Pulse Rate 73 63 Respiratory Rate 14 16 Blood Pressure 136/74 H 129/83 H Blood Pressure Mean 94 Pulse Ox 98 100 Oxygen Delivery Method Room Air MDM <YENIFER De Leon - Last Filed: 10/17/22 15:43> MDM MDM Narrative Medical decision making narrative: Patient presenting today due to nausea, vomiting, and diarrhea that started last night. He is well-appearing and in no acute distress. Differentials include gastroenteritis, diverticulitis, appendicitis. I considered obtaining a CT scan of the abdomen and pelvis, however, he is denying any abdominal pain and his abdomen is soft and nontender on examination. Vital signs are WNL aside from being slightly hypertensive. He reports people at work having similar symptoms. He does not want any blood work to be obtained and just wants medication for nausea and IV fluids. He will be given a liter of IV fluids and IV Zofran. Patient was given a p.o. challenge and did vomit. He will be given Reglan and Toradol as this helped him in the past. I have offered again to obtain laboratory work and patient is agreeable. Labs to be obtained to rule out leukocytosis, anemia, electrolyte abnormality, pancreatitis, assess liver enzymes and are essentially unremarkable. Patient's symptoms are likely attributed to a virus. On reexamination he states he is feeling much better, his abdomen continues to be soft and nontender, and he was able to pass a p.o. challenge. He has been given both Zofran and Reglan for home and will be discharged home in stable condition. I have given him a referral for Dr. Mccoy as this is the third time this year patient has had nausea and vomiting. He is comfortable with plan. Lab Data Attestation: I reviewed the patient's lab results. Labs: Laboratory Results - last 24 hr 10/17/22 10/17/22 10/17/22 12:30 12:30 13:20 WBC 5.3 RBC 4.81 Hgb 14.2 Hct 42.2 MCV 87.7 MCH 29.5 MCHC 33.6 RDW Std Deviation 40.6 RDW Coeff of Jarret 12.8 Plt Count 327 MPV 9.8 Immature Gran % (Auto) 0.200 Neut % (Auto) 63.7 Lymph % (Auto) 24.3 [place] % (Auto) 7.4 Eos % (Auto) 4.0 Baso % (Auto) 0.4 Absolute Neuts (auto) 3.4 Absolute Lymphs (auto) 1.28 Nucleated RBC % 0 Sodium 143 Potassium 3.8 Chloride 110 H Carbon Dioxide 30.0 Anion Gap 3 L BUN 14 Creatinine 0.94 Estim Creat Clear Calc 128.35 Est GFR (MDRD) Af Amer 129 Est GFR (MDRD) Non-Af 107 BUN/Creatinine Ratio 14.8 Glucose 83 Calcium 8.3 L Total Bilirubin 0.50 AST 16 ALT 27 Alkaline Phosphatase 81 Total Protein 6.5 Albumin 3.6 Globulin 2.9 Albumin/Globulin Ratio 1.2 Lipase 30 Urine Color Yellow Urine Clarity Clear Urine pH 7.0 Ur Specific [place] 1.010 Urine Protein Negative Urine Glucose (UA) Normal Urine Ketones Negative Urine Occult Blood Negative Urine Nitrite Negative Urine Bilirubin Negative Urine Urobilinogen Normal Ur Leukocyte Esterase Negative Urine RBC 0 SEEN Urine WBC 0 SEEN Ur Squamous Epith Cells 0 SEEN Urine Bacteria 0 SEEN Urine Mucus 0 SEEN <Dr. Serenity Vivar, DO - Last Filed: 10/17/22 17:40> [facility] Lab Data Labs: Laboratory Results - last 24 hr 10/17/22 10/17/22 10/17/22 12:30 12:30 13:20 WBC 5.3 RBC 4.81 Hgb 14.2 Hct 42.2 MCV 87.7 MCH 29.5 MCHC 33.6 RDW Std Deviation 40.6 RDW Coeff of Jarret 12.8 Plt Count 327 MPV 9.8 Immature Gran % (Auto) 0.200 Neut % (Auto) 63.7 Lymph % (Auto) 24.3 [place] % (Auto) 7.4 Eos % (Auto) 4.0 Baso % (Auto) 0.4 Absolute Neuts (auto) 3.4 Absolute Lymphs (auto) 1.28 Nucleated RBC % 0 Sodium 143 Potassium 3.8 Chloride 110 H Carbon Dioxide 30.0 Anion Gap 3 L BUN 14 Creatinine 0.94 Estim Creat Clear Calc 128.35 Est GFR (MDRD) Af Amer 129 Est GFR (MDRD) Non-Af 107 BUN/Creatinine Ratio 14.8 Glucose 83 Calcium 8.3 L Total Bilirubin 0.50 AST 16 ALT 27 Alkaline Phosphatase 81 Total Protein 6.5 Albumin 3.6 Globulin 2.9 Albumin/Globulin Ratio 1.2 Lipase 30 Urine Color Yellow Urine Clarity Clear Urine pH 7.0 Ur Specific [place] 1.010 Urine Protein Negative Urine Glucose (UA) Normal Urine Ketones Negative Urine Occult Blood Negative Urine Nitrite Negative Urine Bilirubin Negative Urine Urobilinogen Normal Ur Leukocyte Esterase Negative Urine RBC 0 SEEN Urine WBC 0 SEEN Ur Squamous Epith Cells 0 SEEN Urine Bacteria 0 SEEN Urine Mucus 0 SEEN Treatment and Re-Evaluation :: I have personally performed a face to face assessment of the patient and have reviewed the CHARLEEN Note. I performed a substantive portion of the visit including all aspects of the following. My pompa findings include: History is patient is a 22-year-old male that denies any significant past medical history presenting with a recurrent episode of nausea, vomiting and diarrhea. Patient has been seen a couple times over the past few months for similar presentation. Patient states symptom started yesterday with vomiting and diarrhea. He denies any blood in his vomit or stool. Has abdominal discomfort but no specific pain. Does not want lab work as he states he had labs done 2 weeks ago and they were normal. He has never seen GI/been refered to GI. Is not aware of any family history of inflammatory bowel disease such as Crohn's or ulcerative colitis. 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 When I saw the patient he had received a dose of Zofran and is almost finished with a liter of IV fluids and states he was feeling better and willing to try p.o. challenge. He and ran out of the Zofran he had at home. Patient states he drinks about once a month and denies any recent heavy drinking. He denies any marijuana, THC or CBD use. On my evaluation patient states that he is feeling a little better after receiving Zofran but his stomach is still slightly unsettled. His is willing to try p.o. challenge. Abdomen is soft and nontender. No CVA tenderness. Patient clinically does not appear dehydrated however he is received about 750 cc of fluid so far. He tells me he has been prescribed Bentyl in the past but it was not helpful. Vital signs are normal. Prior ER visit from 02/27/2023 reviewed which showed largely normal work-up with a similar presentation. At that time patient was discharged home with Zofran. As patient is normal vital signs, has a benign physical exam and is requesting to not have work-up done at this time I think is appropriate should he improve with Zofran. Discussed that if his symptoms persist despite the Zofran he might require more of a work-up. He is agreeable with this at this time. Patient failed his initial p.o. challenge. He is then given IV Toradol and Reglan which has previously tolerated. Lab work is added on which is largely normal. Will be discharged home with prescription for Zofran and Reglan for breakthrough symptoms. I do think patient would benefit from GI follow-up and will be given a referral. Other additions or changes: [None] Discharge Plan Triage Chief Complaint: Nausea/Vomiting/Diarrhea ED Midlevel Provider: Jill Lóen ED Provider: Serenity Vivar Dx/Rx/DC Orders Clinical Impression: Nausea & vomiting, Diarrhea Instructions: ED Vomiting and Diarrhea ... Prescriptions: New ondansetron 4 mg tablet,disintegrating 4 mg PO Q8H PRN PRN (Reason: Nausea) Qty: 10 0RF metoclopramide HCl [Reglan] 10 mg tablet 10 mg PO Q6H PRN (Reason: nausea and vomiting) 4 Days Qty: 16 0RF Primary Care Provider: Getachew Cabrera NP Referrals: Zach Mccoy DO [Med Staff - Active Staff] - 1 Week Getachew Cabrera NP, [employer]ER-[employer] [Primary Care Provider] - 3-5 Days if not improving Activity Restrictions/Additional Instructions: Please follow-up with the GI doctor that we have referred you to. Please return for any worsening of your symptoms. Stay well-hydrated. Disposition Disposition: Home, Self Care Discharge Date/Time: 10/17/22 13:56
[2022-10-17] MEDS: 0.9% Normal Saline 1,000 ML 999 ML IV (11:23)
[2022-10-17] MEDS: Ondansetron 4 MG/2 ML Vial IV (11:23)
[2022-10-17] MEDS: Metoclopramide 10 MG/2 ML Vial 5 MG IV (12:29)
[2022-10-17] MEDS: Ketorolac 15 MG/ML Vial IV (12:29)
[2022-10-17 12:50] LABS: Absolute Lymphocyte Count 1.28 X10^3/uL (0.83-4.51); Absolute Neutrophil Count 3.4 X10^3/uL (2.0-7.7); Basophil# 0.02 X10^3/uL; Basophil% 0.4 % (0-1); Eosinophil# 0.21 X10^3/uL; Hematocrit 42.2 % (40-54); Hemoglobin 14.2 g/dL (13.0-16.5); Lymphocyte # 1.28 X10^3/ul (0.83-4.51); Lymphocyte % 24.3 % (19-41); Mean Corp Hgb Conc 33.6 g/dL (32-36); Mean Corpuscular Hgb 29.5 pg (27.0-32.0); Mean Corpuscular Volume 87.7 fL (80-94); Mean Platelet Vol. 9.8 fl (6.2-12.0); Monocyte# 0.39 X10^3/uL; Monocyte% 7.4 % (0-10); NRBC Flagged by Analyzer 0 % (0-5); Neutrophil # 3.36 X10^3/uL (2.7-7.7); Neutrophil % 63.7 % (47-70); Platelet Count 327 K/mm3 (150-450); RBC Distribution Width CV 12.8 % (11.6-14.6); RBC Distribution Width SD 40.6 fl (35.1-43.9); Red Blood Count 4.81 M/mm3 (4.6-6.2); White Blood Count 5.3 K/mm3 (4.4-11.0)
[2022-10-17 13:09] LABS: ALB/GLOB Ratio 1.2 RATIO (0.9-2.4); AST(SGOT) 16 U/L (15-37); Alanine Aminotransfer ALT/SGPT 27 U/L (16-61); Albumin, Serum 3.6 g/dL (3.2-5.0); Alkaline Phosphatase 81 U/L (45-117); Anion Gap 3 (5-15); BUN 14 mg/dL (7-18); BUN/Creat Ratio 14.8 RATIO (10-20); Calcium,Total 8.3 mg/dL (8.5-10.1); Chloride 110 mmol/L (98-107); Creatinine, Serum 0.94 mg/dL (0.70-1.30); EST Glomerular Filtration Rate 107 mL/min (>60); Est Glom Filt Rate - Afr Amer 129 mL/min (>60); Estimated Creatinine Clearance 128.35 ml/min; Globulin 2.9 g/dL (2.2-4.2); Glucose 83 mg/dL (74-106); Lipase 30 U/L (13-75); Potassium 3.8 mmol/L (3.5-5.1); Protein, Total 6.5 g/dL (6.4-8.2); Sodium Level 143 mmol/L (136-145)
[2022-10-17 13:27] LABS: Bacteria 0 SEEN /hpf (None Seen); Mucous, Urine 0 SEEN /hpf (<or=2+); Red Blood Cells-Urine 0 SEEN /hpf (0-5); Squamous Epithelial Cells - UA 0 SEEN /hpf (0-5); White Blood Cells 0 SEEN /hpf (0-5)
[2022-10-17 13:33] LABS: Color, Urine Yellow (Yellow); Glucose, Dipstick Normal (Normal); Ketone-Dipstick Negative (Negative); Leukocyte Esterase-Dipstick Negative /ul (Negative); Nitrite-Dipstick Negative (Negative); Occult Blood-Urine Negative /ul (Negative); Protein-Dipstick Negative (Negative); Urine Bilirubin Dipstick Negative (Negative); Urine Clarity Clear (Clear); Urine Urobilinogen Normal (Normal)
[2022-10-17 13:47] VITALS: BP 129/83; PULSE 63; RESP 16; O2SAT 100
== END 2022-10-17 13:56 | disposition home or self-care (01) ==
PROVIDERS: Physician Assistant; Emergency Provider Emergency Medicine; PCP Nurse Practitioner Family; Visit Provider Emergency Medicine
DX: R11.2 Nausea with vomiting, unspecified (principal); R19.7 Diarrhea, unspecified; F17.290 Nicotine dependence, other tobacco product, uncomplicated
CPT/HCPCS: 80053; 81001; 83690; 85025; 96361; 96374; 96375; 99283; J7030; A4216; J2405

== ENCOUNTER 2022-11-20 05:12 | Emergency (ER) | payer BC, SELFPAY ==
[2022-11-20 05:13] VITALS: BP 130/67; PULSE 60; RESP 16; TEMP 36.2; O2SAT 100; BMI 35.0
--- NOTE | 2022-11-20 05:25 | EDS_ITS ---
HPI History of Present Illness Chief Complaint: Dizziness Informant: patient Narrative Narrative: Patient woke up this morning almost 2 hours ago, upon rolling over from a lying position in bed and getting up he suddenly started feeling dizzy like it was difficult to focus on things with his eyes, denies any presyncopal or syncopal symptoms, a little nausea associated with it but no vomiting. No vision disturbances. Had similar symptoms in July that went away on their own so he did not follow-up with ENT. No recent illness, no recent head injury, no tinnitus. No recent earache although he has a history of ear infections in the past and had ear tubes several times remotely. [facility] Medical History Contusion of left index finger with damage to nail Diaphoresis Encounter for preventative adult health care examination Laceration of left index finger Mallet deformity of left index finger Unexplained weight loss Home Medications meclizine 25 mg tablet 25 mg PO Q8H PRN PRN Dizziness #20 tabs 11/20/22 [Rx Last Taken Unknown] Allergy/AdvReac Type Severity Reaction Status Date / Time cefuroxime [From Ceftin] Allergy PT UNSURE Verified 11/20/22 05:17 OF REACTION Family History Father Alcoholism Grandfather Alcoholism Parkinsons Grandfather No problems noted. Grandmother Anxiety Breast cancer Melanoma Other Myocardial infarction Surgical History History of placement of ear tubes Social History Smoking Status: Never smoker Electronic Cigarette Use: with nicotine alcohol intake: never substance use type: does not use what type of physical activity do you participate in: weight training frequency: daily ROS ROS ED Constitutional Constitutional ED: Denies chills or fever(s) Eyes Eyes: Denies change in vision or diplopia ENT ENT ED: Reports as per HPI and vertigo; Denies ear pain, sore throat or tinnitus Cardiovascular Cardiovascular: Denies chest pain Respiratory/Chest Respiratory/Chest: Denies dyspnea Musculoskeletal Musculoskeletal: Denies back pain or neck pain Integumentary Denies abscess or rash Neurologic Neurologic: Denies headache(s), paresthesias or weakness EXAM Physical Exam Const Vital Signs: 11/20/22 05:13 11/20/22 05:15 Temperature 97.1 F L Temperature Source Temporal Pulse Rate 60 Respiratory Rate 16 Respiratory Effort Normal Respiratory Pattern Normal Blood Pressure 130/67 H Blood Pressure Mean 88 Pulse Ox 100 Oxygen Delivery Method Room Air Positive well nourished and well developed General Appearance ED: well developed and NAD HEENT Reports TM's clear and moist mucous membranes Tympanic Membrane ED: Yes TM's clear bilateral (With some chronic-appearing scarring right tympanic membrane) Eyes PERRL and EOMs intact bilaterally Eyes Narrative: No pathologic nystagmus, no vertical or rotatory nystagmus Neck no lymphadenopathy and supple Resp normal respiratory effort and clear to auscultation bilaterally Cardio regular rate, regular rhythm and no murmurs Rate: Negative for tachycardic Extremity normal to inspection Neuro oriented x3, CN's II-XII intact bilaterally, no sensory deficits noted and gait normal Neuro Narrative: Positive Nathalie-Hallpike to the left Motor Exam: strength 5/5 throughout Psych mental status grossly normal Skin no rashes or lesions noted and no wounds MDM MDM MDM Narrative Medical decision making narrative: Symptoms are intermittent, he is triggering them with head movement/position changes, he has a history of ear issues, and with remaining still his symptoms resolved quickly. This is all consistent with peripheral etiology of his vertigo. I attempted to do a jolt test on him, but his symptoms had already stopped and so the test was normal, which does not make this more suspicious for central etiology given all of the above. Reassured given a prescription for meclizine and advised to follow-up with ENT again if the symptoms do not resolve. He is comfortable with that plan. Discharge Plan Triage Chief Complaint: Dizziness ED Provider: Bryson Hannon Dx/Rx/DC Orders Clinical Impression: Peripheral vertigo Instructions: ED BPV Vertigo, ED Labyrinthitis Prescriptions: New meclizine [meclizine] 25 mg tablet 25 mg PO Q8H PRN PRN (Reason: Dizziness) Qty: 20 0RF Stand Alone Forms: ED Work / School Excuse Primary Care Provider: Getachew Cabrera NP Referrals: Deep Bowen MD [Med Staff - Active Staff] - 1 Week if not improving Getachew Cabrera NP, [employer] [Primary Care Provider] - Disposition Disposition: Home, Self Care
[2022-11-20] MEDS: Meclizine HCl 25 MG Tablet PO (05:41)
== END 2022-11-20 05:43 | disposition home or self-care (01) ==
LOC: ED 05:39
PROVIDERS: Emergency Provider Emergency Medicine; PCP Nurse Practitioner Family; Visit Provider Emergency Medicine
DX: H81.399 Other peripheral vertigo, unspecified ear (principal); F17.290 Nicotine dependence, other tobacco product, uncomplicated
CPT/HCPCS: 99283